=== PATIENT | female | born 2000 | race Two or more races ===

== ENCOUNTER 2019-07-03 21:50 | Emergency (ER) | payer OTHER ==
[2019-07-03 21:54] VITALS: BMI 26.6
--- NOTE | 2019-07-03 21:54 | PDOC ---
Rapid Medical Evaluation Chief Complaint: Pain, Acute Time Seen by Provider: 07/03/19 21:52 Medical Evaluation: 07/03/19 21:52 18 year old female with generalized abdominal pain since last night. lmp 2018. unsure of + nausea Pe: patient alert ox3 A: abdominal pain P: ua urine Discharge Disposition - Diagnosis Abdominal pain Qualifiers: Abdominal location: generalized Qualified Code(s): R10.84 - Generalized abdominal pain - Referrals - Patient Instructions - Post Discharge Activity
[2019-07-03] MEDS ORDERED: ACETAMINOPHEN 1000 MG/100 ML VIAL (NON FORMULARY) IVPB ONE (22:23)
[2019-07-03 22:48] LABS: BASO % 0.6 % (0-2.0); HEMATOCRIT 42.3 % (32.4-45.2); HEMOGLOBIN 13.9 GM/dL (10.7-15.3); LYMPH % 38.4 % (8-40); MCH 28.1 pg (25.7-33.7); MCHC 32.9 g/dl (32.0-36.0); MEAN CELL VOLUME 85.2 fl (80-96); MEAN PLT VOLUME 8.7 fl (7.5-11.1); MONO % 8.5 % (3.8-10.2); NEUT % 51.5 % (42.8-82.8); PLATELET COUNT 369 K/MM3 (134-434); RBC 4.96 M/mm3 (3.60-5.2); RDW 14.6 % (11.6-15.6); WHITE BLOOD COUNT 9.1 K/mm3 (4.0-10.0)
[2019-07-03 23:02] LABS: INR 1.09 (0.83-1.09); PROTHROMBIN TIME (PATIENT) 12.9 SEC (9.7-13.0)
[2019-07-03] MEDS ORDERED: ACETAMINOPHEN INJECTION 100 ML IVPB ONE (23:03)
[2019-07-03 23:14] LABS: ALBUMIN 4.1 g/dl (3.4-5.0); BILIRUBIN,TOTAL 0.4 mg/dL (0.2-1); BLOOD UREA NITROGEN 10.1 mg/dL (7-18); CALCIUM 9.4 mg/dL (8.5-10.1); CREATININE 0.6 mg/dL (0.55-1.3); POTASSIUM 3.9 mmol/L (3.5-5.1); TOT PROT 7.9 g/dl (6.4-8.2)
--- NOTE | 2019-07-03 23:28 | PDOC ---
History of Present Illness - General Chief Complaint: Pain, Acute Stated Complaint: ABD PAIN Time Seen by Provider: 07/03/19 21:52 Past History - Past Medical History Allergies/Adverse Reactions: Allergies Allergy/AdvReac Type Severity Reaction Status Date / Time naproxen Allergy Verified 07/03/19 21:54 COPD: No - Psycho Social/Smoking Cessation Hx Smoking History: Never smoked Review of Systems - Review of Systems Comments:: 07/03/19 22:45 GENERAL/CONSTITUTIONAL: No fever or chills. No weakness. HEAD, EYES, EARS, NOSE AND THROAT: No change in vision. No ear pain or discharge. No sore throat. CARDIOVASCULAR: No chest pain or shortness of breath. RESPIRATORY: No cough, wheezing, or hemoptysis. GASTROINTESTINAL: No nausea, vomiting, diarrhea or constipation. GENITOURINARY: No dysuria, frequency, or change in urination. Positive reddish discharge, ?blood MUSCULOSKELETAL: No joint or muscle swelling or pain. No neck or back pain. SKIN: No rash NEUROLOGIC: No headache, vertigo, loss of consciousness, or change in strength/ sensation. ENDOCRINE: No increased thirst. No abnormal weight change. HEMATOLOGIC/LYMPHATIC: No anemia, easy bleeding, or history of blood clots. ALLERGIC/IMMUNOLOGIC: No hives or skin allergy *Physical Exam - Vital Signs Last Vital Signs Temp Pulse Resp BP Pulse Ox 98 F 108 H 18 145/89 99 07/03/19 21:52 07/03/19 21:52 07/03/19 21:52 07/03/19 21:52 07/03/19 21:52 - Physical Exam Comments: 07/03/19 23:29 Gen: well-developed, well-nourished, NAD Neuro: AAOX4, CN II-XII intact, FTN intact, EOMI, PERRLA, 5/5 strength, SILT HEENT: atraumatic, normocephalic, dry mucous membranes Neck: trachea midline, supple CV: tachycardic, regular rhythm, no murmurs, rubs, or gallops Pulm: CTA b/l, no wheezing Abd: soft, non-distended, suprapubic tenderness MSK: full ROM, intact pulses Extr: no edema, no deformities Skin: warm, dry ED Treatment Course - LABORATORY CBC & Chemistry Diagram: 07/03/19 22:25 07/03/19 22:25 - ADDITIONAL ORDERS Additional order review: Laboratory Results 07/03/19 07/03/19 07/03/19 22:25 22:25 22:25 PT with INR 12.90 INR 1.09 PTT (Actin FS) 37.9 H Sodium 141 Potassium 3.9 Chloride 106 Carbon Dioxide 27 Anion Gap 8 BUN 10.1 Creatinine 0.6 Est GFR (CKD-EPI)AfAm 153.15 Est GFR (CKD-EPI)NonAf 132.14 Random Glucose 95 Calcium 9.4 Total Bilirubin 0.4 AST 13 L ALT 20 Alkaline Phosphatase 98 Total Protein 7.9 Albumin 4.1 Beta HCG, Quant 07/03/19 22:25 PT with INR INR PTT (Actin FS) Sodium Potassium Chloride Carbon Dioxide Anion Gap BUN Creatinine Est GFR (CKD-EPI)AfAm Est GFR (CKD-EPI)NonAf Random Glucose Calcium Total Bilirubin AST ALT Alkaline Phosphatase Total Protein Albumin Beta HCG, Quant < 1.0 07/03/19 22:25 RBC 4.96 MCV 85.2 MCHC 32.9 RDW 14.6 MPV 8.7 Neutrophils % 51.5 Lymphocytes % 38.4 Monocytes % 8.5 Eosinophils % 1.0 Basophils % 0.6 - RADIOLOGY Radiology Studies Ordered: Category Date Time Status TRANSVAGINAL ULTRASOUND US [US] Stat Ultrasound 07/03/19 23:25 Ordered - Medications Given in the ED: ED Medications Discontinued Medications Generic Name Dose Route Start Last Admin Trade Name Freq PRN Reason Stop Dose Admin Acetaminophen 1,000 mg 07/03/19 22:23 07/03/19 23:14 Ofirmev Injection - IVPB 07/03/19 22:24 1,000 mg ONCE ONE Administration Medical Decision Making - Medical Decision Making 07/03/19 22:45 Concern for ectopic vs torsion. - CBC, CMP, T+S, coags - quant beta-hCG - TVUS - reassess 07/03/19 23:26 Beta-hCG negative, CBC and CMP wnl. 07/04/19 00:11 Pelvic exam: milky white discharge, no bleeding, cervical os closed, no CMT, left adnexal tenderness on bimanual exam. 07/04/19 00:[address] Armas. Discharge - Discharge Information Problems reviewed: Yes Clinical Impression/Diagnosis: Abdominal pain Qualifiers: Abdominal location: generalized Qualified Code(s): R10.84 - Generalized abdominal pain Condition: Stable Disposition: HOME - Follow up/Referral Referrals: Casey Contreras MD [Staff Physician] - Tian Neri MD [Staff Physician] - - Patient Discharge Instructions Patient Printed Discharge Instructions: DI for Abdominal Pain-Adult Additional Instructions: Please make a follow up appointment with your PCP (Dr. Sandoval) and your OBGYN ( Dr. Brennan). If you are not able to make an appointment with them, a referral to a PCP and OBGYN are included here. If you experience any new, worsening, or concerning symptoms, including fever, chills, dizziness, nausea, vomiting, severe vaginal bleeding, severe abdominal pain, or any other concerns, please return to the emergency department. - Post Discharge Activity
--- NOTE | 2019-07-03 23:35 | PDOC ---
Documentation entered by Nataliia Ramey SCRIBE, acting as scribe for Savannah Wu MD. Savannah Wu MD: This documentation has been prepared by the Tanvir bullock Joy, SCRIBE, under my direction and personally reviewed by me in its entirety. I confirm that the documentation accurately reflects all work, treatment, procedures, and medical decision making performed by me. Attending Attestation - Resident Resident Name: Rere Jimenez - ED Attending Attestation I have performed the following: I have examined & evaluated the patient, The case was reviewed & discussed with the resident, Exceptions are as noted - HPI HPI: 07/03/19 22:56 18 yo F with no significant past medical history who presents to the ED with abdominal pain which started today and associated red discharge/vaginal bleeding (last known menstrual cycle 04/27/19). As per patient, she feels a sharp pain in the suprapubic region with a severity 8/10, the pain is worsened when lying down. Patient also states urinary frequency which she attributes to possibly due to drinking more water. unsure if she may be . pt is here with her boyfriend, states she is sexually active with him, lives at home with parents and sometimes with her boyfriend. denies feeling unsafe with him or at home. no vaginal discharge. states she bumped into something, and pain started following but states she was not pushed. asked while alone in the room. Denies dysuria, burning and all other symptoms. Allergies: Naproxen 07/03/19 23:24 - Physicial Exam PE: 07/03/19 23:29 awake alert lungs clear bilat heart rrr no mrg abd soft suprapubic ttp. no rebound no guarding. ext wwp. no rebound no guarding. alert oriented x 3. no cva tenderenss. - Medical Decision Making 07/03/19 23:30 18 yo F here with LMP 05/07 c/o suprapubic abd pain. differential , ovarian cyst torsion. ectpic. pid uti renal colic. plan tvus, labs bhcg ua focused ED us FAST, no free fluid. uterus difficult to visualize. bhcg negative. tvus r/o torsion/ cyst. ct a/p
[2019-07-04] MEDS ORDERED: SODIUM CHLORIDE 0.9% 500 ML INFUS.BAG IV ONE (00:17)
--- NOTE | 2019-07-04 00:23 | PDOC ---
*Physical Exam - Vital Signs Last Vital Signs Temp Pulse Resp BP Pulse Ox 98 F 108 H 18 145/89 99 07/03/19 21:52 07/03/19 21:52 07/03/19 21:52 07/03/19 21:52 07/03/19 21:52 ED Treatment Course - LABORATORY CBC & Chemistry Diagram: 07/03/19 22:25 07/03/19 22:25 - ADDITIONAL ORDERS Additional order review: Laboratory Results 07/03/19 07/03/19 07/03/19 22:25 22:25 22:25 PT with INR 12.90 INR 1.09 PTT (Actin FS) 37.9 H Sodium Potassium Chloride Carbon Dioxide Anion Gap BUN Creatinine Est GFR (CKD-EPI)AfAm Est GFR (CKD-EPI)NonAf Random Glucose Calcium Total Bilirubin AST ALT Alkaline Phosphatase Total Protein Albumin Beta HCG, Quant Blood Type B POSITIVE Antibody Screen Negative 07/03/19 07/03/19 22:25 22:25 PT with INR INR PTT (Actin FS) Sodium 141 Potassium 3.9 Chloride 106 Carbon Dioxide 27 Anion Gap 8 BUN 10.1 Creatinine 0.6 Est GFR (CKD-EPI)AfAm 153.15 Est GFR (CKD-EPI)NonAf 132.14 Random Glucose 95 Calcium 9.4 Total Bilirubin 0.4 AST 13 L ALT 20 Alkaline Phosphatase 98 Total Protein 7.9 Albumin 4.1 Beta HCG, Quant < 1.0 Blood Type Antibody Screen 07/03/19 22:25 RBC 4.96 MCV 85.2 MCHC 32.9 RDW 14.6 MPV 8.7 Neutrophils % 51.5 Lymphocytes % 38.4 Monocytes % 8.5 Eosinophils % 1.0 Basophils % 0.6 - Medications Given in the ED: ED Medications Discontinued Medications Generic Name Dose Route Start Last Admin Trade Name Freq PRN Reason Stop Dose Admin Acetaminophen 1,000 mg 07/03/19 22:23 07/03/19 23:14 Ofirmev Injection - IVPB 07/03/19 22:24 1,000 mg ONCE ONE Administration Medical Decision Making - Medical Decision Making 07/04/19 00:22 Pt received on sign out from Dr. Jimenez. 18F presenting with suprapubic TTP. Left adnexal tenderness on pelvic exam. Serum quant test negative. -ua, ucx -tvus read pending 11/16/19 0145 TVUS shows no evidence of ovarian torsion bilaterally. Upreg negative. UA negative. Urine Test Results Urine Color Yellow 07/04/19 01:30 Urine Appearance Cloudy 07/04/19 01:30 Urine pH 7.5 (5.0-8.0) 07/04/19 01:30 Ur Specific [place] 1.022 (1.010-1.035) 07/04/19 01:30 Urine Protein Negative (NEGATIVE) 07/04/19 01:30 Urine Glucose (UA) Negative (NEGATIVE) 07/04/19 01:30 Urine Ketones Negative (NEGATIVE) 07/04/19 01:30 Urine Blood Negative (NEGATIVE) 07/04/19 01:30 Urine Nitrite Negative (NEGATIVE) 07/04/19 01:30 Urine Bilirubin Negative (NEGATIVE) 07/04/19 01:30 Ur Leukocyte Esterase Negative (NEGATIVE) 07/04/19 01:30 07/04/19 0200 Pt reassessed. Reports that the pain has significantly improved. Mild suprapubic pressure on palpation but no pain. Plan to d/c home, f/u PCP and OBGYN. Discharge - Discharge Information Problems reviewed: Yes Clinical Impression/Diagnosis: Abdominal pain Qualifiers: Abdominal location: generalized Qualified Code(s): R10.84 - Generalized abdominal pain Condition: Stable Disposition: HOME - Admission No - Follow up/Referral Referrals: Casey Contreras MD [Staff Physician] - iTan Neri MD [Staff Physician] - - Patient Discharge Instructions Patient Printed Discharge Instructions: DI for Abdominal Pain-Adult Additional Instructions: Please make a follow up appointment with your PCP (Dr. Sandoval) and your OBGYN ( Dr. Brennan). If you are not able to make an appointment with them, a referral to a PCP and OBGYN are included here. If you experience any new, worsening, or concerning symptoms, including fever, chills, dizziness, nausea, vomiting, severe vaginal bleeding, severe abdominal pain, or any other concerns, please return to the emergency department. - Post Discharge Activity
[2019-07-04 01:46] LABS: PH,URINE 7.5 (5.0-8.0); URINE APPEARANCE CLOUDY; URINE BILIRUBIN NEGATIVE (NEGATIVE); URINE COLOR YELLOW; URINE GLUCOSE (UA) NEGATIVE (NEGATIVE); URINE KETONE NEGATIVE (NEGATIVE); URINE LEUK ESTERASE NEGATIVE (NEGATIVE); URINE NITRITE NEGATIVE (NEGATIVE); URINE PROTEIN NEGATIVE (NEGATIVE)
[2019-07-04 02:36] VITALS: BP 123/83; PULSE 97; TEMP 98.1
== END 2019-07-04 03:40 | disposition home or self-care (01) ==
LOC: JER 21:50
PROC: BW41ZZZ Ultrasonography of Abdomen and Pelvis (ICD-10-PCS; principal; 2019-07-03)
PROC: 3E033NZ Introduction of Analgesics, Hypnotics, Sedatives into Peripheral Vein, Percutaneous Approach (ICD-10-PCS; 2019-07-03)
DX: R10.84 Generalized abdominal pain (principal); Z88.6 Allergy status to analgesic agent
CPT/HCPCS: 36415; 76830-TC; 80053; 81003; 84702; 84703; 85025; 85610; 85730; 86850; 86900; 86901; 87491; 87591; 87661; 99283-25; J0131

== ENCOUNTER 2019-07-13 23:32 | Emergency (ER) | payer OTHER ==
[2019-07-13 23:38] VITALS: BP 129/72; PULSE 110; TEMP 99; BMI 27.9
== END 2019-07-14 00:45 | disposition left against medical advice (07) ==
LOC: JER 23:32
DX: Z53.21 Procedure and treatment not carried out due to patient leaving prior to being seen by health care provider (principal)
CPT/HCPCS: 99281-25